=== PATIENT | female | born 1965 | race Caucasian/White ===

== ENCOUNTER 2025-01-12 08:09 | Outpatient (AMB) | payer MEDICAID, SELFPAY ==
--- NOTE | 2025-01-12 08:33 | PD.ORTHCLVIS ---
Vital signs 01/12/25 08:39 Height 1.6 m Height Method Stated Weight 89.131 kg Weight Measurement Method Standing Scale BMI 34.8 BP 124/66 Blood Pressure Source Automatic Cuff Blood Pressure Location Left Upper Arm Position Sitting Respiration 18 Pulse 50 L Pulse Source Monitor Temp 95.9 F L Temp Source Temporal Artery Scan Pulse Oximetry (%) 97 Oxygen Delivery Method Room Air Med/Allergies Allergies & Medications Allergies No Known Allergies Allergy (Verified 01/12/25 08:44) Medication Reconciliation Hydrocodone/Acetaminophen * (NORCO 5/325 *) 2 tab PO Q4H PRN PAIN #14 tabs 01/21/16 [Rx Confirmed 01/12/25] lorazepam 1 mg tablet 1 mg PO BID #5 tabs 02/10/17 [Rx Confirmed 01/12/25] sodium chloride 0.65 % nasal spray aerosol (Saline Nasal) 2 spray intranasal QID #88 mL 08/15/22 [Rx Confirmed 01/12/25] meloxicam 7.5 mg tablet 7.5 mg PO QDAY #30 tabs 02/14/24 [Rx Confirmed 01/12/25] Exam Exam Here She is not sure if she had it on the last so the x-rays show moderate arthritis quite [id number] sometimes when they do that I spoke should the right knee use we can either repeat it or we can continue with conservative treatment if he would like patient is in no acute distress and is cooperative with the examination today. Breathing is nonlabored. In no respiratory distress. Bilateral extremities were evaluated and demonstrates sensation intact to light touch. Palpable pedal pulses are present. No significant edema is present. Bilateral hips were examined. The patient has no pain with log roll of the hips. Internal rotation to 30 degrees and external rotation to 30 degrees is painless. Negative FADIR. The left knee was examined. The left knee is in varus alignment. Range of motion from 0-115 degrees. Knee is stable to varus and valgus as well as AP translation with <5mm. Patient has a negative McMurrays. There is no pain with patellofemoral compression and no crepitus noted. The knee is tender to palpation medially. The right knee was also examined. The right knee is in varus alignment. Range of motion from 0-120 degrees. Knee is stable to varus and valgus as well as AP translation with <5mm. Patient has a negative McMurrays. There is no pain with patellofemoral compression and no crepitus noted. The knee is tender to palpation medially. She has physical copies of her x-rays from [place] in September. This demonstrates moderate arthritis. I would like to repeat standing xrays. Assessment and Plan Problem List (1) Bilateral primary osteoarthritis of knee: Status: Acute Plan: Patient is a 59 yo female With bilateral knee pain and bilateral knee arthritis. She has x-rays done but were mostly nonweightbearing. I would like to get new x-rays with a Braun view. She is tried quite a lot of conservative treatment and the pain is affecting her quality life and happiness. We will get new x-rays of both knees and discuss different treatment options depending on the severity. Office Procedures GNS Level of Care Nursing/Assessment Patient Status: Initial/New Patient Nursing Assessment/Reassesment: Medication Reconciliation, Update PMH in EMR and Vital Signs Coordination of Care: Complex Care and Chronic Disease 1-5, Education Complex Pt/Fam, Consent,records obtained, informed consent, 1 Ins Authorization, Lab and Imaging orders, Results/Orders obtained and Staff clarify orders Special Needs: Language special needs New Patient Charge New Patient Point Assignment: [id number] New Patient Point Charge: SENIOR WAREHOUSE CLERK Level 4 ([id number]) MA Intake Visit Data Collection New Patient or Established: Established Patient (seen at [facility] within 3 years) Reason for Visit:: LEFT KNEE PAIN Seen by Clinical Staff ONLY (RN/MA): No Verbal consent obtained for Telemed visit?: No Infantry Officer Required: Yes PCP or OBGYN visit in last 3 months: Yes Hx Now: No Do You Feel Safe at Home: Yes Authorities Contacted: N/A Questionairres Past Medical History Past Medical History Have you ever been diagnosed with any of the following: Neurological Problems Seizures: No Cardiology Problems Congestive Heart Failure: No Edema: No Cellulitis: No Varicose Veins: No Respiratory Problems Chronic Obstructive Pulmonary Disease (COPD): No Tuberculosis: No Sleep Apnea: No Stomache/Intestinal Problems Hepatitis: No Genital/Urinary Problems Renal Disease: No Reproductive Problems Previous Pregnancies: Yes (X7) Endocrine Problems Diabetes Mellitus Type 1: No Diabetes Mellitus Type 2: No Psychologic Problems Depression: Yes (TAKES MED) Anxiety: Yes Other Problems Hospitalization: No Shingles: No Falls: No Blood Transfusions: No Anesthesia Reactions: No Chemotherapy: No Radiation Therapy: No MRSA: No Chicken Pox: No Measles: No Mumps: No Cancer: No Surgical History Pacemaker: No Subjective Visit Visit for: new patient and knee Immunization / Flu Flu Vaccine in the Last 12 Months: Yes Flu Vaccine Exclusion Criteria: Already Received History of Present Illness Chief complaint: left knee pain Pleasant 59-year-old female with worsening left knee pain over the past year. Patient reports that she has tried anti-inflammatories and 2 injections, most recently in September. Patient reports no relief from both injections and anti-inflammatories. She has had two injections in the past with minimal relief. Patient is interested in pursuing surgery. She has tried ibuprofen, meloixicam, and cortisone injections in the past. Personal History Occupation: UNEMPLOYED BMI Counceling provided: Yes Pain Pain level (0-10): 6 Pain duration: ALL DAY Pain location: anterior Pain quality: sharp, dull, aching and other (specify) (PRESSURE) Pain timing: increases with activity Associated signs & symptoms: weakness Ambulatory data Ambulatory device: none Treatments Improvement with previous injections: No Improvement with PT: No Improvement with NSAIDS: no Review of Systems Review of Systems: All systems negative unless otherwise noted in HPI.
[2025-01-12 08:39] VITALS: BP 124/66; PULSE 50; RESP 18; TEMP 35.5; O2SAT 97; BMI 34.8
--- NOTE | 2025-01-12 08:41 | XR_ITS ---
Examination: Bilateral knees 2 views Right lateral knee left lateral knee 2 views Bilateral axial knees single view TECHNIQUE: Bilateral AP knees standing single view, bilateral PA knees flexion standing single view Standing right lateral knee left lateral knee 2 views Bilateral axial knees single view total 5 views Exam date and time: January 12, 2025 0851 hours INDICATIONS: Bilateral knee pain one year. FINDINGS: Severe osteopenia Advanced narrowing medial joint space left knee Moderate osteoarthritis left patellofemoral joint No patellar dislocation Mild to moderate narrowing medial joint space right knee Moderate osteoarthritis right patellofemoral joint No patellar dislocation IMPRESSION: Osteoarthritis as above, including advanced narrowing medial joint space left knee
== END 2025-01-12 08:52 | disposition home or self-care (01) ==
PROVIDERS: PCP Physician Assistant; Referring Provider Physician Assistant; Supervising Provider Orthopaedic Surgery Adult Reconstructive Orthopaedic Surgery; Visit Provider Orthopaedic Surgery Adult Reconstructive Orthopaedic Surgery
DX: M17.0 Bilateral primary osteoarthritis of knee (principal); F41.9 Anxiety disorder, unspecified
CPT/HCPCS: 73564; 99204; G0463

== ENCOUNTER 2025-01-29 13:02 | Outpatient (AMB) | payer MEDICAID, SELFPAY ==
[2025-01-29 13:17] VITALS: BP 109/72; PULSE 68; RESP 18; TEMP 36.1; O2SAT 96; BMI 34.4
--- NOTE | 2025-01-29 13:17 | ORTHONT_ITS ---
Vital signs 01/29/25 13:17 Height 1.6 m Height Method Stated Weight 88.252 kg Weight Measurement Method Standing Scale BMI 34.4 BP 109/72 Blood Pressure Source Automatic Cuff Blood Pressure Location Right Upper Arm Position Sitting Respiration 18 Pulse 68 Pulse Source Monitor Temp 97.0 F Temp Source Temporal Artery Scan Pulse Oximetry (%) 96 Oxygen Delivery Method Room Air Med/Allergies Allergies & Medications Allergies No Known Allergies Allergy (Verified 01/29/25 13:18) Medication Reconciliation Hydrocodone/Acetaminophen * (NORCO 5/325 *) 2 tab PO Q4H PRN PAIN #14 tabs 01/21/16 [Rx Confirmed 01/29/25] lorazepam 1 mg tablet 1 mg PO BID #5 tabs 02/10/17 [Rx Confirmed 01/29/25] sodium chloride 0.65 % nasal spray aerosol (Saline Nasal) 2 spray intranasal QID #88 mL 08/15/22 [Rx Confirmed 01/29/25] meloxicam 7.5 mg tablet 7.5 mg PO QDAY #30 tabs 02/14/24 [Rx Confirmed 01/29/25] Exam Exam Here She is not sure if she had it on the last so the x-rays show moderate arthritis quite [id number] sometimes when they do that I spoke should the right knee use we can either repeat it or we can continue with conservative treatment if he would like patient is in no acute distress and is cooperative with the examination today. Breathing is nonlabored. In no respiratory distress. Bilateral extremities were evaluated and demonstrates sensation intact to light touch. Palpable pedal pulses are present. No significant edema is present. Bilateral hips were examined. The patient has no pain with log roll of the hips. Internal rotation to 30 degrees and external rotation to 30 degrees is painless. Negative FADIR. The left knee was examined. The left knee is in varus alignment. Range of motion from 0-115 degrees. Knee is stable to varus and valgus as well as AP translation with <5mm. Patient has a negative McMurrays. There is no pain with patellofemoral compression and no crepitus noted. The knee is tender to pa lpation medially. The right knee was also examined. The right knee is in varus alignment. Range of motion from 0-120 degrees. Knee is stable to varus and valgus as well as AP translation with <5mm. Patient has a negative McMurrays. There is no pain with patellofemoral compression and no crepitus noted. The knee is tender to palpation medially. Xrays demonstrate significant obliteration of the medial joint space on the left Assessment and Plan Problem List (1) Bilateral primary osteoarthritis of knee: Status: Acute Plan: Patient is a 59 yo female With bilateral knee pain and bilateral knee arthritis. I would like to get new x-rays with a Barun view. She has tried quite a lot of conservative treatment and the pain is affecting her quality life and happiness. She has significant arthritis of the left knee. She would like to try 1 more cortisone injection before pursuing surgery. Recommend knee cortisone injection as patient would like to proceed with conservative treatment at this time. The risks and benefits of the procedure were reviewed with the patient and patient gave verbal consent to continue with the procedure. Procedure: performed by Dr. Mills Using sterile technique the left knee was thoroughly prepped with alcohol, and approximately 1 cc of Kenalog 40 mg/mL and 4 cc of 1% lidocaine was injected without resistance into the medial tibial femoral joint space. The patient tolerated the procedure. Office Procedures GNS Level of Care Nursing/Assessment Patient Status: Established Patient Nursing Assessment/Reassesment: Medication Reconciliation, Update PMH in EMR and Vital Signs Coordination of Care: Complex Care and Chronic Disease 1-5, Education Complex Pt/Fam, Consent,records obtained, informed consent, Lab and Imaging orders, Results/Orders obtained and Staff clarify orders Special Needs: Language special needs Established Patient Charge Established Patient Point Assignment: 110 Established Patient Point Charge: EP Level 3 (80-115) Surgical Proc/IM SQ injection Major Surgical Procedure: Yes (KNEE INJECTION ) Medication Given Medication Given Medication Given: Yes Documented Dose Given: 4 Route: Infiitration Medication Given Medication Given Medication Given: Yes Documented Dose Given: 1 Route: Infiitration Office Meds Xylocaine 10 mg/mL (1 %) injection solution Performing Provider: Dariel Mills MD Performing Location: [facility] Administered by: Dariel Mills MD on 01/29/25 14:41 Dose Route Admin Location Dispensed Lot Number Expiration Date [facility] [employer] 20 mL Infiltration KNEE 20 mL [id number] 03/28/28 [address]-90 triamcinolone acetonide 40 mg/mL suspension for injection Performing Provider: Dariel Mills MD Performing Location: [facility] Administered by: Paty Cota on 01/29/25 14:41 Dose Route Admin Location Dispensed Lot Number Expiration Date [facility] [employer] 40 mg intra-articular KNEE 1 mL [id number] 07/28/28 0191-4830-41 TE [employer]ENTER[employer] MA Intake Visit Data Collection New Patient or Established: Established Patient (seen at [facility] within 3 years) Reason for Visit:: F/U XRAYS Seen by Clinical Staff ONLY (RN/MA): No Verbal consent obtained for Telemed visit?: No Public Records Researcher Required: No PCP or OBGYN visit in last 3 months: Yes Hx Now: No Do You Feel Safe at Home: Yes Authorities Contacted: N/A Questionairres Past Medical History Past Medical History Have you ever been diagnosed with any of the following: Neurological Problems Seizures: No Cardiology Problems Congestive Heart Failure: No Edema: No Cellulitis: No Varicose Veins: No Respiratory Problems Chronic Obstructive Pulmonary Disease (COPD): No Tuberculosis: No Sleep Apnea: No Stomache/Intestinal Problems Hepatitis: No Genital/Urinary Problems Renal Disease: No Reproductive Problems Previous Pregnancies: Yes (X7) Endocrine Problems Diabetes Mellitus Type 1: No Diabetes Mellitus Type 2: No Psychologic Problems Depression: Yes (TAKES MED) Anxiety: Yes Other Problems Hospitalization: No Shingles: No Falls: No Blood Transfusions: No Anesthesia Reactions: No Chemotherapy: No Radiation Therapy: No MRSA: No Chicken Pox: No Measles: No Mumps: No Cancer: No Surgical History Pacemaker: No Subjective Visit Visit for: follow up visit and x-rays Immunization / Flu Flu Vaccine in the Last 12 Months: No Flu Vaccine Exclusion Criteria: No Exclusion Criteria History of Present Illness Chief complaint: FOLLOW UP XRAYS Pleasant 59-year-old female with worsening left knee pain over the past year. Patient reports that she has tried anti-inflammatories and 2 injections, most recently in September. Patient reports no relief from both injections and anti- inflammatories. She has had two injections in the past with minimal relief. Patient is interested in pursuing surgery. She has tried ibuprofen, meloxicam, and cortisone injections in the past. Personal History Occupation: UNEMPLOYED BMI Counceling provided: Yes Pain Pain level (0-10): 10 Pain duration: ALL DAY Pain location: anterior Pain quality: sharp, dull and aching Pain timing: increases with activity Associated signs & symptoms: weakness and stiffness Ambulatory data Ambulatory device: none Treatments Improvement with previous injections: No Improvement with PT: No Improvement with NSAIDS: no Review of Systems Review of Systems: All systems negative unless otherwise noted in HPI.
== END 2025-01-29 13:43 | disposition home or self-care (01) ==
LOC: HODSRG 13:02
PROVIDERS: PCP Physician Assistant; Referring Provider Physician Assistant; Supervising Provider Orthopaedic Surgery Adult Reconstructive Orthopaedic Surgery; Visit Provider Orthopaedic Surgery Adult Reconstructive Orthopaedic Surgery
DX: M17.0 Bilateral primary osteoarthritis of knee (principal); M25.562 Pain in left knee; M25.561 Pain in right knee; F32.A Depression, unspecified
CPT/HCPCS: 20610; 99213; J3301; J3490; G0463

== ENCOUNTER 2025-02-04 13:57 | Outpatient (AMB) | payer MEDICAID, SELFPAY ==
[2025-02-04 14:37] VITALS: BP 104/67; PULSE 62; RESP 18; TEMP 36.4; O2SAT 98
--- NOTE | 2025-02-04 14:37 | ORTHONT_ITS ---
Vital signs 02/04/25 14:37 Height Method Stated Weight 88.507 kg Weight Measurement Method Standing Scale BP 104/67 Blood Pressure Source Automatic Cuff Blood Pressure Location Right Upper Arm Position Sitting Respiration 18 Pulse 62 Pulse Source Monitor Temp 97.6 F Temp Source Temporal Artery Scan Pulse Oximetry (%) 98 Oxygen Delivery Method Room Air Med/Allergies Allergies & Medications Allergies No Known Allergies Allergy (Verified 02/04/25 14:38) Medication Reconciliation Hydrocodone/Acetaminophen * (NORCO 5/325 *) 2 tab PO Q4H PRN PAIN #14 tabs 01/21/16 [Rx Confirmed 02/04/25] lorazepam 1 mg tablet 1 mg PO BID #5 tabs 02/10/17 [Rx Confirmed 02/04/25] sodium chloride 0.65 % nasal spray aerosol (Saline Nasal) 2 spray intranasal QID #88 mL 08/15/22 [Rx Confirmed 02/04/25] meloxicam 7.5 mg tablet 7.5 mg PO QDAY #30 tabs 02/14/24 [Rx Confirmed 02/04/25] Exam Exam Here She is not sure if she had it on the last so the x-rays show moderate arthritis quite [id number] sometimes when they do that I spoke should the right knee use we can either repeat it or we can continue with conservative treatment if he would like patient is in no acute distress and is cooperative with the examination today. Breathing is nonlabored. In no respiratory distress. Bilateral extremities were evaluated and demonstrates sensation intact to light touch. Palpable pedal pulses are present. No significant edema is present. Bilateral hips were examined. The patient has no pain with log roll of the hips. Internal rotation to 30 degrees and external rotation to 30 degrees is painless. Negative FADIR. The left knee was examined. The left knee is in varus alignment. Range of motion from 0-115 degrees. Knee is stable to varus and valgus as well as AP translation with <5mm. Patient has a negative McMurrays. There is no pain with patellofemoral compression and no crepitus noted. The knee is tender to palpation medially. The right knee was also examined. The right knee is in varus alignment. Range of motion from 0-120 degrees. Knee is stable to varus and valgus as well as AP translation with <5mm. Patient has a negative McMurrays. There is no pain with patellofemoral compression and no crepitus noted. The knee is tender to palpation medially. Xrays demonstrate significant obliteration of the medial joint space on the left with complete obliteration. Osteophytes are present Assessment and Plan Problem List (1) Bilateral primary osteoarthritis of knee: Status: Acute Plan: Patient is a 59 yo female With bilateral knee pain and bilateral knee arthritis. Xrays demonstrate severe left knee osteoarthritis. Given that she has failed conservaitve treatment including home exercises for 4 months, injections, and NSAIDS. We thus discussed tota knee replacement as a reasonable optin for the left. The nature and purpose of the total knee replacement, alternative method(s) of treatment, the material risks involved, and the possibility of complications were fully explained to the patient. The patient does NOT have any of the following contraindications to TKA: - Active infection of the knee joint, OR - Active systemic bacteremia, OR - Active skin infection or open wound at surgical site, OR - Neuropathic arthritis, OR - Severe, rapidly progressive neurological disease, OR - Severe medical condition that makes risks of surgery outweigh the potential benefit The patient was told the most common risks and complications associated with a total knee replacement include, but are not limited to: blood clots in the leg, fatal pulmonary embolism, dislocation of the prosthesis, intraoperative and postoperative fractures of the femur or tibia, infection, failure of the prosthesis or grafting materials, complications from anesthesia, reactions to blood transfusions, postoperative leg length inequality, instability of the knee replacement, nerve damage or injury, vascular injury, delayed wound healing, infection, other injury or even . In addition, there are risks associated with anesthesia given during this operation. Also, the patient was told that after undergoing a total knee replacement there may still be persistent pain or disability. The patient was informed that the success of this operation in part depends upon the mechanical devices which are going to be implanted and that these devices can fail or malfunction, and may need to be repaired or replaced and there are no guarantees as to the longevity of this device or its parts and that it or its parts could fail prematurely. The patient was also notified that during the course of surgery, there may be a need to use bone graft from donors, and that any bone graft used will be carefully screened for communicable diseases, including AIDS, hepatitis, Tomasz-Creutzfeldt, or other diseases, but despite the screening procedures, there is a small chance that they could contract one of these diseases. Finally, the patient was asked to follow completely and fully with all advice and recommended treatments, and that recovery and ultimate outcome are affected by their compliance with recommended treatment. We discussed the risks, benefits and treatment alternatives, and the patient is interested in proceeding with surgery. We will try to set this up as expeditiously as possible. Office Procedures GNS Level of Care Nursing/Assessment Patient Status: Established Patient Nursing Assessment/Reassesment: Medication Reconciliation, Update PMH in EMR and Vital Signs Coordination of Care: Complex Care and Chronic Disease 1-5, Education Complex Pt/Fam, Consent,records obtained, informed consent, 2-3 Insurance Autorizations needed, Lab and Imaging orders, Results/Orders obtained and Staff clarify orders Special Needs: Language special needs Established Patient Charge Established Patient Point Assignment: 130 Established Patient Point Charge: EP Level 4 (120-155) MA Intake Visit Data Collection New Patient or Established: Established Patient (seen at [facility] within 3 years) Reason for Visit:: F/U KNEE INJECTION Seen by Clinical Staff ONLY (RN/MA): No Verbal consent obtained for Telemed visit?: No Tank Truck Operator Required: Yes PCP or OBGYN visit in last 3 months: Yes Hx Now: No Do You Feel Safe at Home: Yes Authorities Contacted: N/A Questionairres Past Medical History Past Medical History Have you ever been diagnosed with any of the following: Neurological Problems Seizures: No Cardiology Problems Congestive Heart Failure: No Edema: No Cellulitis: No Varicose Veins: No Respiratory Problems Chronic Obstructive Pulmonary Disease (COPD): No Tuberculosis: No Sleep Apnea: No Stomache/Intestinal Problems Hepatitis: No Genital/Urinary Problems Renal Disease: No Reproductive Problems Previous Pregnancies: Yes (X7) Endocrine Problems Diabetes Mellitus Type 1: No Diabetes Mellitus Type 2: No Psychologic Problems Depression: Yes (TAKES MED) Anxiety: Yes Other Problems Hospitalization: No Shingles: No Falls: No Blood Transfusions: No Anesthesia Reactions: No Chemotherapy: No Radiation Therapy: No MRSA: No Chicken Pox: No Measles: No Mumps: No Cancer: No Surgical History Pacemaker: No Subjective Visit Visit for: follow up visit and x-rays Immunization / Flu Flu Vaccine in the Last 12 Months: No Flu Vaccine Exclusion Criteria: No Exclusion Criteria History of Present Illness Chief complaint: FOLLOW UP XRAYS Pleasant 59-year-old female with worsening left knee pain over the past year. Patient reports that she has tried anti-inflammatories and 3 injections. The knee injections are not working for more than a week. She has also tried ibuprofen, meloxicam, and cortisone injections in the past. The pain is affecting her quality of life and happiness. Personal History Occupation: UNEMPLOYED BMI Counceling provided: Yes Pain Pain level (0-10): 10 Pain duration: ALL DAY Pain location: anterior Pain quality: sharp, dull and aching Pain timing: increases with activity Associated signs & symptoms: weakness and stiffness Ambulatory data Ambulatory device: none Treatments Improvement with previous injections: No Improvement with PT: No Improvement with NSAIDS: no Review of Systems Review of Systems: All systems negative unless otherwise noted in HPI.
== END 2025-02-04 14:51 | disposition home or self-care (01) ==
LOC: HODSRG 13:57
PROVIDERS: PCP Physician Assistant; Referring Provider Physician Assistant; Supervising Provider Orthopaedic Surgery Adult Reconstructive Orthopaedic Surgery; Visit Provider Orthopaedic Surgery Adult Reconstructive Orthopaedic Surgery
DX: M17.0 Bilateral primary osteoarthritis of knee (principal); M25.562 Pain in left knee; M25.561 Pain in right knee; F32.A Depression, unspecified
CPT/HCPCS: 99214; G0463

== ENCOUNTER 2025-03-11 07:55 | Emergency (ER) | payer MEDICAID, SELFPAY ==
[2025-03-11 07:56] VITALS: BMI 41.5
[2025-03-11 08:04] VITALS: BP 116/75; PULSE 65; RESP 18; TEMP 36.7; O2SAT 98
--- NOTE | 2025-03-11 08:12 | XR_ITS ---
Examination: Thoracic spine 3 views Technique one AP lateral coned lateral upper dorsal spine 3 views Date and time: March 11, 2025 at 0830 hours INDICATIONS: Upper back pain one week. FINDINGS: Prominent osteopenia No acute thoracic fracture Moderate diffuse thoracic degenerative disc disease IMPRESSION: Moderate diffuse thoracic degenerative disc disease
--- NOTE | 2025-03-11 08:13 | EDNOTE_ITS ---
<Statement entered by Lesa Quintana MD - 03/11/25 10:57> As co-signing physician, I was present and available for consult prn. I concur with the plan and care as documented by the midlevel provider. ED Back Injury Pain RME/HPI General Chief Complaint: Back Pain/Injury Stated Complaint: UPPER BACK PAIN SINCE 03/04 NO INJURY Time Seen by Provider: 03/11/25 07:57 Source: patient Arrival date/time: 03/11/25 07:55 59-year-old female with no known medical history presents to the emergency room with a chief complaint of thoracic back pain x 1 week. Patient denies any trauma. Mode of arrival: ambulatory Limitations: no limitations Related Data Previous Rx's ?Medication ?Instructions ?Recorded Hydrocodone/Acetaminophen * (NORCO 2 tab PO Q4H PRN PA IN #14 tabs 01/21/16 5/325 *) lorazepam 1 mg tablet 1 mg PO BID #5 tabs 02/10/17 sodium chloride 0.65 % nasal spray 2 spray intranasal QID #88 mL 08/15/22 aerosol (Saline Nasal) meloxicam 7.5 mg tablet 7.5 mg PO QDAY #30 tabs 01/26 07/21 Allergies Allergy/AdvReac Type Severity Reaction Status Date / Time No Known Allergies Allergy Verified 03/11/25 07:58 Review of Systems Review of Systems Systems Reviewed: All systems reviewed, normal except as documented Constitutional Constitutional: Reports system reviewed and no additional complaints, except as documented, Denies fatigue, Denies fever(s), Denies headache(s) and Denies weakness Eyes Eyes: Reports system reviewed and no additional complaints, except as documented, Denies blurry vision and Denies change in vision ENT Ears, Nose, Mouth, and Throat: Reports system reviewed and no additional complaints, except as documented, Denies otalgia, Denies headache(s), Denies nasal congestion, Denies throat swelling and Denies vertigo Cardiovascular Cardiovascular: Reports system reviewed and no additional complaints, except as documented, Denies chest pain, Denies dyspnea and Denies dyspnea on exertion Respiratory Respiratory: Reports system reviewed and no additional complaints, except as documented, Denies chest congestion, Denies cough, Denies dyspnea, Denies dyspnea on exertion and Denies wheezing Gastrointestinal Gastrointestinal: Reports system reviewed and no additional complaints, except as documented, Denies abdominal pain, Denies cramping, Denies nausea and Denies vomiting Genitourinary Genitourinary: Reports system reviewed and no additional complaints, except as documented Musculoskeletal Musculoskeletal: Reports system reviewed and no additional complaints, except as documented, Reports arthralgias and Reports back pain Integumentary/Breasts Skin/Breast: Reports system reviewed and no additional complaints, except as documented and Denies wounds Neurologic Neurologic: Reports system reviewed and no additional complaints, except as documented, Denies confusion, Denies headache(s), Denies lack of coordination, Denies vertigo and Denies weakness Psychiatric Psychiatric: Reports system reviewed and no additional complaints, except as documented, Denies anxiety, Denies confusion, Denies depression, Denies paranoia, Denies suicidal ideation and Denies tactile hallucinations Endocrine Endocrine: Reports system reviewed and no additional complaints, except as documented and Denies fatigue Hematologic/Lymphatic Hematologic/Lymphatic: Reports system reviewed and no additional complaints, except as documented and Denies lymphadenopathy Allergic/Immunologic Allergic/Immunologic: Reports system reviewed and no additional complaints, except as documented, Denies throat swelling, Denies urticaria and Denies wheezing Past Medical History Past Medical History NEUROLOGIC: Negative Neurological Disorders or Seizures CARDIAC: Negative Cardiac Disorders, Congestive Heart Failure, Edema, Cellulitis or Varicose Veins RESPIRATORY: Negative Chronic Obstructive Pulmonary Disease (COPD), Tuberculosis or Sleep Apnea GASTROINTESTINAL: Negative Gastrointestinal Disorders or Hepatitis GENITOURINARY: Negative Genitourinary Disorders or Renal Disease REPRODUCTIVE: Positive Previous Pregnancies (X7) MUSCULOSKELETAL: Positive Musculoskeletal Disorders ENDOCRINE: Negative Endocrine Disorders, Diabetes Mellitus Type 1 or Diabetes Mellitus Type 2 HEMATOLOGIC: Negative Blood Disorders PSYCHO/SOCIAL: Positive Depression (TAKES MED) and Anxiety OTHER HISTORY: Negative Hospitalization, Autoimmune Disease, Shingles, Falls, Blood Transfusions, Anesthesia Reactions, Chemotherapy, Radiation Therapy, MRSA, Chicken Pox, Measles, Mumps or Cancer Family History FAMILY HISTORY: Positive Family Cancer (BROTHER (LIVER)); Negative Family Psychiatric Problems, Family Respiratory Disorders, Family Cardiac Disorders, Family Gastrointestinal Problems, Family Surgery or Family Anesthesia Reaction Surgical History SURGICAL: Positive Section (X2); Negative Pacemaker Social History SMOKING STATUS: Never smoker ED Exam General Limitations: Present no limitations General appearance: Present alert and in no apparent distress Head Head exam: Present atraumatic Eye Eye exam: Present normal appearance, PERRL and EOMI ENT ENT exam: Present normal exam, normal oropharynx and mucous membranes moist Neck Neck exam: Present normal inspection, full ROM and trachea midline Chest Chest inspection: Present normal inspection and symmetric chest wall rise Respiratory Respiratory exam: Present normal lung sounds bilaterally Cardiovascular Cardiovascular exam: Present regular rate, normal rhythm and normal heart sounds Abdominal Exam Abdominal exam: Present soft and normal bowel sounds Extremities Exam Extremities exam: Present normal inspection and full ROM Back Exam Back exam: Present normal inspection, full ROM and tenderness Back 1 view image: 2 1. Thoracic back pain. Neurological Exam Neurological exam: Present alert, oriented X3 and CN II-XII intact Psychiatric Psychiatric exam: Present normal affect and normal mood Skin Skin exam: Present warm, dry, intact and normal color Course Quality Measures none Orders Category Date Time Status XR thoracic spine 3V Stat Exams 03/11/25 08:12 Completed Ketorolac Inj [Toradol Inj] Med 03/11/25 08:12 Discontinued 30 mg IM X1 ONE Vital Signs Vital signs: Vital Signs Temperature 98.1 F 03/11/25 08:04 Pulse Rate 65 03/11/25 08:04 Respiratory Rate 18 03/11/25 08:04 Blood Pressure 116/75 03/11/25 08:04 Pulse Oximetry (%) 98 03/11/25 08:04 Oxygen Delivery Method Room Air 03/11/25 08:04 Back Pain / Injury MDM Narrative MDM Narrative:: 59-year-old female with no known medical history presents to the emergency room with a chief complaint of thoracic back pain x 1 week. Patient denies any trauma. Patient is hemodynamically stable and in no apparent distress Patient denies any trauma and states his thoracic back pain began 1 week ago. Patient states that when she is rolling in bed her pain gets worse. Patient states she made an appointment with her primary care provider who scheduled her in late March. X-ray of the thoracic spine was completed and was negative for any acute fracture or dislocation and showed degenerative disc disease. Patient was discharged and educated to follow-up with primary care provider in the next 24 to 48 hours and return to the emergency room for any evidence of worsening signs or symptoms Patient data External records reviewed:: [facility] previous records Clinical information provided by:: patient Social determinants that could affect healthcare access:: none Patient has the following chronic illnesses:: No chronic illness How is presenting disease/condition affected by chronic disease/condition?: no chronic disease Evaluation data The following diagnostics were reviewed and interpreted by me:: lab results and radiology exam(s) Lab and/or radiology exams considered but not ordered:: Labs and radiology exams considered and ordered Interpretation Summary: Thoracic back [id number]: Prominent osteopenia No acute thoracic fracture Moderate diffuse thoracic degenerative disc disease IMPRESSION: Moderate diffuse thoracic degenerative disc disease Medications / Prescriptions Medications or Prescriptions considered but not ordered:: Medication given Medication administrations:: Medication Administration History Discontinued Medications Ketorolac Tromethamine (Ketorolac Inj 60 Mg/2 Ml Vial) 30 mg IM X1 ONE Stop: 03/11/25 08:13 Last Admin: 03/11/25 08:47 Dose: 30 mg Documented By: Medication given Consultations Consultation(s) initiated? (list below): No Diagnosis Differential diagnosis back pain/injury: lumbar radiculopathy, sciatica, strain of lumbar region, thoracic back pain, discitis and other (Degenerative disc disease) Most likely diagnosis given after review of the tests above:: Degenerative disc disease Admission Indicated Admission indicated?: not indicated Admission Request Was there a request for admission?: No Disposition Plan Disposition Plan: Discharge Discharge Attestation Discharge Attestation: The patient and all family members were given an opportunity to ask questions and understood the discharge instructions. Discharge instructions specifically effects, indications for sooner follow up or return to the emergency department, and the expected course of current diagnosis. Patient condition: Stable Discharge Plan Plan Patient Disposition: HOME (Self Care) Discharge Disposition comment: Stable Prescriptions/Referrals Prescriptions/Med Rec: No Action Hydrocodone/Acetaminophen * (NORCO 5/325 *) 1 TAB tablet 2 tab PO Q4H PRN (Reason: PAIN) Qty: 14 0RF lorazepam 1 MG tablet 1 mg PO BID Qty: 5 0RF Saline Nasal 0.65 % aerosol,spray 2 spray intranasal QID Qty: 88 0RF meloxicam 7.5 mg tablet 7.5 mg PO QDAY Qty: 30 0RF Referrals: Keron Rojas PA-C [Primary Care Provider] - In 1 week Problem List Clinical Impression: Degenerative disc disease Patient/Caregiver Discharge Instructions Additional Instructions: Por favor, consulte con martínez m?dico de cabecera en las pr?ximas 24 a 48 horas. Se realizaron radiograf?as que dieron negativo para cualquier fractura o luxaci?n aguda y mostraron enfermedad degenerativa del disco. [place] es el deterioro del cart?bryson entre las v?rtebras. Por favor, consulte con martínez m?dico de cabecera para recibir tratamiento adicional. Si observa cualquier signo de empeoramiento de los signos o s?ntomas, acuda a urgencias de inmediato. Print Language: Somali Stand Alone Forms: [employer] Award Info., Patient Portal Info Letter PA/ASSEMBLER FINGER BUFFS Supervising Physician PA/ASSEMBLER FINGER BUFFS Supervising Physician: Dr. QUINTANA
[2025-03-11] MEDS: KETOROLAC INJ 60 MG/2 ML VIAL 30 MG IM (08:47)
== END 2025-03-11 09:48 | disposition home or self-care (01) ==
PROVIDERS: Emergency Provider Emergency Medicine; PCP Physician Assistant
DX: M51.34 Other intervertebral disc degeneration, thoracic region (principal)
CPT/HCPCS: 72072; 96372; 99283; J1885

== ENCOUNTER 2025-05-04 10:19 | Outpatient (AMB) | payer MEDICAID, SELFPAY ==
[2025-05-04 10:53] VITALS: BP 94/57; PULSE 56; RESP 19; TEMP 36.7; O2SAT 96; BMI 36.5
--- NOTE | 2025-05-04 10:53 | PD.ORTHCLVIS ---
Vital signs 05/04/25 10:53 Height 1.55 m Height Method Stated Weight 87.685 kg Weight Measurement Method Standing Scale BMI 36.5 BP 94/57 L Blood Pressure Source Automatic Cuff Blood Pressure Location Right Upper Arm Position Sitting Respiration 19 Pulse 56 L Pulse Source Monitor Temp 98.0 F Temp Source Temporal Artery Scan Pulse Oximetry (%) 96 Oxygen Delivery Method Room Air Med/Allergies Allergies & Medications Allergies No Known Allergies Allergy (Verified 05/04/25 10:53) Medication Reconciliation Hydrocodone/Acetaminophen * (NORCO 5/325 *) 2 tab PO Q4H PRN PAIN #14 tabs 01/21/16 [Rx Confirmed 05/04/25] lorazepam 1 mg tablet 1 mg PO BID #5 tabs 02/10/17 [Rx Confirmed 05/04/25] sodium chloride 0.65 % nasal spray aerosol (Saline Nasal) 2 spray intranasal QID #88 mL 08/15/22 [Rx Confirmed 05/04/25] meloxicam 7.5 mg tablet 7.5 mg PO QDAY #30 tabs 02/14/24 [Rx Confirmed 05/04/25] Exam Exam Here She is not sure if she had it on the last so the x-rays show moderate arthritis quite [id number] sometimes when they do that I spoke should the right knee use we can either repeat it or we can continue with conservative treatment if he would like patient is in no acute distress and is cooperative with the examination today. Breathing is nonlabored. In no respiratory distress. Bilateral extremities were evaluated and demonstrates sensation intact to light touch. Palpable pedal pulses are present. No significant edema is present. Bilateral hips were examined. The patient has no pain with log roll of the hips. Internal rotation to 30 degrees and external rotation to 30 degrees is painless. Negative FADIR. The left knee was examined. The left knee is in varus alignment. Range of motion from 0-115 degrees. Knee is stable to varus and valgus as well as AP translation with <5mm. Patient has a negative McMurrays. There is no pain with patellofemoral compression and no crepitus noted. The knee is tender to palpation medially. The right knee was also examined. The right knee is in varus alignment. Range of motion from 0-120 degrees. Knee is stable to varus and valgus as well as AP translation with <5mm. Patient has a negative McMurrays. There is no pain with patellofemoral compression and no crepitus noted. The knee is tender to palpation medially. Xrays demonstrate significant obliteration of the medial joint space on the left with complete obliteration. Osteophytes are present Assessment and Plan Problem List (1) Bilateral primary osteoarthritis of knee: Status: Acute Plan: Patient is a 59 yo female With bilateral knee pain and bilateral knee arthritis. Xrays demonstrate severe left knee osteoarthritis. Given that she has failed conservaitve treatment including home exercises for 4 months, injections, and NSAIDS. We thus discussed tota knee replacement as a reasonable option for the left. The nature and purpose of the total knee replacement, alternative method(s) of treatment, the material risks involved, and the possibility of complications were fully explained to the patient. The patient does NOT have any of the following contraindications to TKA: - Active infection of the knee joint, OR - Active systemic bacteremia, OR - Active skin infection or open wound at surgical site, OR - Neuropathic arthritis, OR - Severe, rapidly progressive neurological disease, OR - Severe medical condition that makes risks of surgery outweigh the potential benefit The patient was told the most common risks and complications associated with a total knee replacement include, but are not limited to: blood clots in the leg, fatal pulmonary embolism, dislocation of the prosthesis, intraoperative and postoperative fractures of the femur or tibia, infection, failure of the prosthesis or grafting materials, complications from anesthesia, reactions to blood transfusions, postoperative leg length inequality, instability of the knee replacement, nerve damage or injury, vascular injury, delayed wound healing, infection, other injury or even . In addition, there are risks associated with anesthesia given during this operation. Also, the patient was told that after undergoing a total knee replacement there may still be persistent pain or disability. The patient was informed that the success of this operation in part depends upon the mechanical devices which are going to be implanted and that these devices can fail or malfunction, and may need to be repaired or replaced and there are no guarantees as to the longevity of this device or its parts and that it or its parts could fail prematurely. The patient was also notified that during the course of surgery, there may be a need to use bone graft from donors, and that any bone graft used will be carefully screened for communicable diseases, including AIDS, hepatitis, Tomasz-Creutzfeldt, or other diseases, but despite the screening procedures, there is a small chance that they could contract one of these diseases. Finally, the patient was asked to follow completely and fully with all advice and recommended treatments, and that recovery and ultimate outcome are affected by their compliance with recommended treatment. We discussed the risks, benefits and treatment alternatives, and the patient is interested in proceeding with surgery. We will try to set this up as expeditiously as possible. Office Procedures GNS Level of Care Nursing/Assessment Patient Status: Established Patient Nursing Assessment/Reassesment: Medication Reconciliation, Update PMH in EMR and Vital Signs Coordination of Care: Complex Care and Chronic Disease 1-5, Education Complex Pt/Fam, Consent,records obtained, informed consent, Lab and Imaging orders, Results/Orders obtained and Staff clarify orders Special Needs: Language special needs Established Patient Charge Established Patient Point Assignment: 110 Established Patient Point Charge: EP Level 3 (80-115) MA Intake Visit Data Collection New Patient or Established: Established Patient (seen at [facility] within 3 years) Reason for Visit:: PRE-OP LEFT TKA Seen by Clinical Staff ONLY (RN/MA): No Verbal consent obtained for Telemed visit?: No Medical Assistant Required: Yes PCP or OBGYN visit in last 3 months: Yes Hx Now: No Do You Feel Safe at Home: Yes Authorities Contacted: N/A Questionairres Past Medical History Past Medical History Have you ever been diagnosed with any of the following: Neurological Problems Seizures: No Cardiology Problems Congestive Heart Failure: No Edema: No Cellulitis: No Varicose Veins: No Respiratory Problems Chronic Obstructive Pulmonary Disease (COPD): No Tuberculosis: No Sleep Apnea: No Stomache/Intestinal Problems Hepatitis: No Genital/Urinary Problems Renal Disease: No Reproductive Problems Previous Pregnancies: Yes (X7) Endocrine Problems Diabetes Mellitus Type 1: No Diabetes Mellitus Type 2: No Psychologic Problems Depression: Yes (TAKES MED) Anxiety: Yes Other Problems Hospitalization: No Shingles: No Falls: No Blood Transfusions: No Anesthesia Reactions: No Chemotherapy: No Radiation Therapy: No MRSA: No Chicken Pox: No Measles: No Mumps: No Cancer: No Surgical History Pacemaker: No Subjective Visit Visit for: knee Immunization / Flu Flu Vaccine in the Last 12 Months: No Flu Vaccine Exclusion Criteria: No Exclusion Criteria History of Present Illness Chief complaint: PRE-OP L TKA Pleasant 59-year-old female with worsening left knee pain over the past year. Patient reports that she has tried anti-inflammatories and 3 injections. The knee injections are not working for more than a week. She has also tried ibuprofen, meloxicam, and cortisone injections in the past. The pain is affecting her quality of life and happiness. Personal History Occupation: UNEMPLOYED Red flag PMH: BMI BMI Counceling provided: Yes Pain Pain level (0-10): 9 Pain duration: ALL DAY Pain location: inside (medial), outside (lateral), anterior and posterior Pain quality: sharp, dull and aching Pain timing: night, increases with activity and stairs Associated signs & symptoms: numbness, weakness and stiffness Ambulatory data Ambulatory device: none Treatments Number of previous injections: 2 Improvement with previous injections: No Improvement with PT: No Improvement with NSAIDS: no Review of Systems Review of Systems: All systems negative unless otherwise noted in HPI.
== END 2025-05-04 11:07 | disposition home or self-care (01) ==
PROVIDERS: PCP Physician Assistant; Referring Provider Physician Assistant; Supervising Provider Orthopaedic Surgery Adult Reconstructive Orthopaedic Surgery; Visit Provider Orthopaedic Surgery Adult Reconstructive Orthopaedic Surgery
DX: M17.0 Bilateral primary osteoarthritis of knee (principal); M25.562 Pain in left knee; M25.561 Pain in right knee
CPT/HCPCS: 99213; G0463

== ENCOUNTER → 2025-05-10 | Outpatient (CLI) | payer MEDICAID, SELFPAY ==
--- NOTE | 2025-05-10 12:00 | XR_ITS ---
Examination: CT left lower extremity, without contrast. 2-D sagittal reconstructions. 2-D coronal reconstructions. 3-D reconstructions. Date and time of exam:May 10, 2000 2512 0 8:00 PM INDICATIONS: Diagnosis left knee unilateral primary osteoarthritis, left knee pain one year CTDI: vol (mGy):18.4 DLP: (mGycm):916 Technique: Multiple 1.25 mm axial sections of the left lower extremity without intravenous contrast have been obtained. 2-D sagittal and coronal reconstructions have been obtained. 3-D reconstructions have been obtained. Low dose protocols were performed. One or more of the following dose reduction techniques were used; automated exposure control, adjustment of the mA and/or KV according to patient size, use of iterative reconstruction technique. Findings: Moderate osteopenia Moderate narrowing left hip joint No left hip fracture or dislocation Advanced left knee tricompartment osteoarthritis including significant narrowing medial joint space No fracture. No patellar dislocation IMPRESSION: Advanced left knee tricompartment osteoarthritis
== END | disposition home or self-care (01) ==
LOC: CCTX 11:39
PROVIDERS: PCP Physician Assistant; Referring Provider Orthopaedic Surgery Adult Reconstructive Orthopaedic Surgery; Visit Provider Orthopaedic Surgery Adult Reconstructive Orthopaedic Surgery
DX: M17.12 Unilateral primary osteoarthritis, left knee (principal)
CPT/HCPCS: 73700

== ENCOUNTER 2025-05-24 05:40 | Day surgery (SDC) | payer MEDICAID, SELFPAY ==
--- NOTE | 2025-05-20 06:00 | EKG_ITS ---
[facility] Test Date: 2025-05-20 Pat Name: LINDA KAM Department: Room: - Gender: Female [employer] Chemist: MARLYS : 1965 Requested By: Xu Lyons Order Number: [id number] Reading MD: Xu Lyons Measurements Intervals [place] Rate: 47 P: 51 SC: 195 QRS: 13 QRSD: 101 T: 51 QT: 427 QTc: 378 Interpretive Statements SINUS BRADYCARDIA LOW QRS VOLTAGE IN PRECORDIAL LEADS [QRS DEFLECTION < 1.0 mV IN CHEST LEADS] NONSPECIFIC ST ELEVATION [0.05+ mV ST ELEVATION] Compared to ECG 08/15/2022 19:18:33 Low QRS voltage now present ST (T wave) deviation now present Sinus rhythm no longer present /store/S0/[id number].pdf
[2025-05-20 08:46] VITALS: BMI 36.7
[2025-05-20 10:16] LABS: Basophils # (Auto) 0.0 Thou/mm3 (0.0-0.2); Basophils % (Auto) 1 % (0-2.5); Eosinophils # (Auto) 0.1 Thou/mm3 (0.0-0.5); Eosinophils % (Auto) 3 % (0-10); Hematocrit 38.1 % (36.0-46.0); Hemoglobin 12.9 g/dL (12.0-16.0); Immature Granulocytes Auto 0.01 Thou/mm3 (0.00-0.00); Lymphocytes # (Auto) 1.7 Thou/mm3 (1.0-4.8); Lymphocytes % (Auto) 34 % (10-50); Mean Corpuscular HGB Conc 33.9 g/dl (31.0-37.0); Mean Corpuscular Hemoglobin 31.8 pg (25.0-35.0); Mean Corpuscular Volume 94 fL (80-100); Monocytes # (Auto) 0.4 Thou/mm3 (0.0-0.8); Monocytes % (Auto) 8 % (0-12); Neutrophils # (Auto) 2.7 Thou/mm3 (1.8-7.7); Neutrophils % (Auto) 54 % (37-80); Nucleated Red Blood Cell # 0.00 Thou/mm3 (0.00-0.00); Nucleated Red Blood Cell % 0 /100 WBC (0); Platelet Count 276 Thou/mm3 (140-440); RDW Standard Deviation 41.6 fL (36.4-46.3); Red Blood Count 4.06 Miln/mm3 (4.00-5.20); White Blood Count 4.9 Thou/mm3 (3.6-11.0)
[2025-05-20 10:24] LABS: INR 1.0 (0.9-1.3); Partial Thromboplastin Time 26.7 Seconds (22.0-36.0); Prothrombin Time 10.4 Seconds (9.0-12.2)
[2025-05-20 10:37] LABS: Alanine Aminotransferase 12 U/L (10-49); Albumin, Serum 4.4 gm/dL (3.4-4.8); Albumin/Globulin Ratio 1.6 (1.2-2.2); Alkaline Phosphatase 128 U/L (46-116); Anion Gap 8 (7-16); Aspartate Amino Transferase 23 U/L (0-34); BUN/Creatinine Ratio 19 Ratio (12-20); Bilirubin,Total 0.7 mg/dL (0.3-1.2); Blood Urea Nitrogen 13 mg/dL (9-23); Calcium 9.4 mg/dL (8.3-10.6); Calcium (Corrected) 9.4 mg/dL (8.5-10.1); Carbon Dioxide 26.8 mMol/L (20.0-31.0); Chloride 103 mMol/L (98-107); Creatinine (Component) 0.7 mg/dL (0.6-1.3); Estimated Creatinine Clearance 85.2 mL/min (>60); Globulin 2.8 gm/dL (2.3-3.5); Glucose 101 mg/dL (74-106); Osmolality,Calculated 275 (275-295); Potassium 4.5 mMol/L (3.4-5.1); Sodium 138 mMol/L (136-145); Total Protein 7.2 gm/dL (5.7-8.2); eGFR > 60 See Note
[2025-05-24] VITALS (16 sets, daily range): BP systolic 126–169; BP diastolic 59–97; PULSE 55–86; RESP 14–68; TEMP 36.2–36.8; O2SAT 94–100; BMI 36.9
[2025-05-24] MEDS: PREGABALIN 75 MG CAPSULE PO (06:19)
[2025-05-24] MEDS: MELOXICAM 7.5 MG TABLET PO (06:20)
[2025-05-24] MEDS: ACETAMINOPHEN 325 MG TABLET 650 MG PO (06:20)
--- NOTE | 2025-05-24 09:33 | ESOP_ITS ---
Date of Procedure 05/24/25 Pre Op Diagnosis left knee osteoarthritis Post Op Diagnosis left knee osteoarthritis Procedure left total knee replacement suzan Findings full thickness cartilage loss and osteophytes Procedure Description Indication: The patient is a 59 year old who has a long history of left knee pain. X-rays show degenerative arthritis involving the knee. Over the past several years the patient has had increasing pain, progressive limitation in function. He has failed conservative measures including activity modification, physical therapy, injections, anti-inflammatories, and assistive devices. After a lengthy discussion of the risks and benefits, the patient presents now for total knee replacement. The nature and purpose of the total knee replacement, alternative method(s) of treatment, the material risks involved, and the possibility of complications were fully explained to the patient. The patient was told the most common risks and complications associated with a total knee replacement include, but are not limited to blood clots in the leg, fatal pulmonary embolism, dislocation of the prosthesis, intraoperative and postoperative fractures of the femur or tibia, infection, failure of the prosthesis or grafting materials, complications from anesthesia, reactions to blood transfusions, postoperative leg length inequality, instability of the knee replacement, nerve damage or injury, vascular injury, delayed wound healing, infections, other injury or even . In addition, there are risks associated with anesthesia given during this operation, temporary or permanent numbness on the skin lateral to the incision can be a complication unique to total knee surgery, and kneeling can be painful after knee replacement surgery. Also, the patient was told that after undergoing a total knee replacement there may still be pain or disability. We discussed with the patient that we will be using a robot-assisted technology. We discussed that there is a possibility of converting to manual instrumentation. The patient was informed that the success of this operation in part depends upon the mechanical devices which are going to be implanted and that these devices can fail or malfunction, and may need to be repaired or replaced and there are no guarantees as to the longevity of this device or its part and that it or its parts could fail prematurely. Finally, the patient was asked to follow completely and fully with all advice and recommended treatments, and that recovery and ultimate outcome are affected by their compliance with recommended treatment. Surgical technique: Patient was marked and consented in the pre-operative area. The patient was brought to the operating room and placed on the operating table in a supine position. Prior to positioning, a timeout procedure was performed between the surgeon, the anesthesiologist, and the nursing staff where the patient and the operative side were identified and confirmed. After adequate general anesthetic was obtained, the left lower extremity was prepped and draped in the usual sterile fashion. A weight based dose of Cefazolin were administered within 1 hour prior to incision. The robot was preregistered and calirated before the incision. The extremity was exsanguinated with an esmarch badge and tourniquet inflated to 250mmHg. A midline incision was made. A median parapatellar arthrotomy was made. The patella was subluxed laterally. A medial release was performed to expose the medial tibia. His femoral and tibial pins were placed through an intra incisional manner for both cases. Every effort was made to ensure that the distalmost aspect of the pin was hung in the second cortex. The arrays were then tightened several times to ensure that it was fixed for the remainder of the case. Both femoral and tibial checkpoints were then placed. We then went through the registration process of the bone. We then assessed the knee deformity and attempted to correct it. We also used the robot to aid in judging laxity in both extension and flexion. Final based on laxity and alignment we changed the preoperative assessment to obtain proper proper implant positioning and to correct deformity. Attention was then placed to the tibia. We made a tibial cut using the robot ensuring that both the MCL and the patella tendon were protected with retractors. We then went to the femur and made the posterior cut followed by the anterior cut and the anterior chamfer. The bone was then removed and we made a distal femur cut and a posterior chamfer cut. We verified all cuts. A trial reduction was performed with a size 5 femoral component and a size 4 keeled tibial component. The patella tracked centrally, and no lateral retinacular release was necessary. The trial implants were removed. The arrays, pins, and checkpoints were all removed. We performed a verification that all pins were removed. The cut bone surfaces were lavaged. A size 5 left femoral component, a size 4 keeled tibial component , were impacted into position. The knee was felt to be well balanced in the sagittal and coronal plane. The final 4x12mm cruciate- substituting articular insert was impacted into the tibial tray. The knee was brought out to full extension, flexed up to 120 degrees. It was stable to varus and valgus stress and appropriately balanced in flexion and extension. The wounds were copiously irrigated following deflation of tourniquet. The medial retinaculum was reapproximated with #1 vicryl and quill. The subcutaneous tissues were closed with 0 and 2-0 interrupted Vicryl. The skin was closed with 3-0 Monofilament V loc suture. A sterile dressing was applied. The patient was transferred to a bed and brought to recovery in stable condition. The patient tolerated the procedure well. There were no intraoperative complications. Sponge and needle counts were correct times 2. As the attending surgeon, Kristy moya I was present and performed the entire operation. Grafts/Implants Size 5 CR Femur Size 4 Tibia 12mm poly CS Anesthesia spinal Implants jamal Pathology / specimen None Pathology comment: none Estimated Blood Loss 150 Condition Stable Disposition same day Surgeon Dariel Mills MD Surgical Staff Operation Date: 05/24/25 07:30 Case Staff Anesthesiologist: Shine Alejandre RN First Assistant: Bonnie Norton
--- NOTE | 2025-05-24 09:37 | SUR.PHASEI ---
0937: Pt. AAOx4, vitals stable, breathing unlabored, no complaint of pain or nausea, dressing to left knee CDI, no active bleed noted, bilateral dorsalis pedis pulses faint and regular, cap refill to bilateral feet less than 3 seconds, pt. able to move bilateral legs, report received from Megan SORIANO and MD Alejandre.
[2025-05-24] MEDS: ONDANSETRON INJ 2 MG/ML INJ 2 ML 4 MG IV (09:49)
--- NOTE | 2025-05-24 09:53 | XR_ITS ---
Examination: Knee, left , 3 views Technique: Knee AP, lateral, oblique 3 views Date and time of exam: May 16, 2025 1046 hours INDICATIONS: Postop knee replacement. FINDINGS: Total left knee arthroplasty. Satisfactory alignment. Severe osteopenia. No fracture IMPRESSION: Total left knee arthroplasty with satisfactory alignment
[2025-05-24] MEDS: METOCLOPRAMIDE INJ 5 MG/ML VIAL 2 ML 10 MG IVP (09:57)
[2025-05-24] MEDS: PROMETHAZINE INJ 12.5 MG in SODIUM CHLORIDE 0.9% 50 ML 2.5 MG IV (10:26)
[2025-05-24] MEDS: HYDROmorphone INJ 2 MG/ML VIAL 0.4 MG IVP (11:03)
[2025-05-24] MEDS: fentaNYL CIT INJ 50 mCg/ML AMP 2ML 25 MCG IVP ×2 (11:56→12:38)
--- NOTE | 2025-05-24 12:00 | SUR.PHASEII ---
1200:: Report given to Judith SORIANO to resume care of pt. Pt. AAO4, vitals stable, breathing unlabored, dressing to left knee CDI, no active bleed noted, family at bedside.
[2025-05-24] MEDS: ACETAMINOPHEN IVPB 1,000 MG/100 ML VIAL 250 MG IV (12:01)
--- NOTE | 2025-05-24 12:05 | SUR.PHASEII ---
Received report on pt. s/p surgery from Sarah SORIANO. Pt. is resting with eyes closed, responds to verbal commands, VSS, pt.'s family at bedside, dressing to left knee CDI.
--- NOTE | 2025-05-24 12:34 | SUR.PHASEII ---
1234: Report received from Judith SORIANO. No new changes to pt.
--- NOTE | 2025-05-24 13:40 | SUR.PHASEII ---
1340: Pt. AAOx4, vitals stable, breathing unlabored, no complaint of pain or nausea, dressing to left knee CDI, no active bleed noted, bilateral dorsalis pedis pulses present, cap refill to bilateral feet less than 3 seconds, pt. tolerated ambulating with physical therapy well, pt. able to void, pt. tolerated sips of water well, gave discharge instructions to the pt. and her ride using land reclamation specialist, both verbalized understanding and had no further questions. Pt. left with all personal belongings.
== END 2025-05-24 13:40 | disposition home or self-care (01) ==
PROVIDERS: Anesthesiology; PCP Physician Assistant; Referring Provider Orthopaedic Surgery Adult Reconstructive Orthopaedic Surgery; Visit Provider Orthopaedic Surgery Adult Reconstructive Orthopaedic Surgery
PROC: (CPT 27447; principal; 2025-05-24 07:30)
DX: M17.12 Unilateral primary osteoarthritis, left knee (principal); Z01.810 Encounter for preprocedural cardiovascular examination; M25.762 Osteophyte, left knee
CPT/HCPCS: 27447; 20985; 36415; 73562; 80053; 85025; 85610; 85730; 93005; 97162; A4217; C1713; C1776; J0131; J0690; J1100; J1171; J1885; J2250; J2405; J2550; J2704; J2765; J2795; J3010; J3490; J7999; A4648; A4649; A9270

== ENCOUNTER 2025-06-08 08:56 | Outpatient (AMB) | payer MEDICAID, SELFPAY ==
[2025-06-08 09:08] VITALS: BP 144/81; PULSE 85; RESP 18; TEMP 36.7; O2SAT 97; BMI 36.4
--- NOTE | 2025-06-08 09:08 | PD.ORTHCLVIS ---
Vital signs 06/08/25 09:08 Height 1.55 m Height Method Measured Weight 87.6 kg Weight Measurement Method Standing Scale BMI 36.4 BP 144/81 H Blood Pressure Source Automatic Cuff Blood Pressure Location Left Upper Arm Position Sitting Respiration 18 Pulse 85 Pulse Source Monitor Temp 98.1 F Temp Source Temporal Artery Scan Pulse Oximetry (%) 97 Oxygen Delivery Method Room Air Med/Allergies Allergies & Medications Allergies No Known Allergies Allergy (Verified 06/08/25 09:10) Medication Reconciliation hydroxyzine HCl 25 mg tablet 25 mg PO HS 05/20/25 [History Confirmed 06/08/25] lisinopril 20 mg tablet 20 mg PO DAILY 05/20/25 [History Confirmed 06/08/25] methocarbamol 500 mg tablet 500 mg PO BID 05/20/25 [History Confirmed 06/08/25] acetaminophen 500 mg tablet (Acetaminophen Extra Strength) 1,000 mg (2 x 500 mg) PO Q6H PRN pain #90 tabs 05/24/25 [Rx Confirmed 06/08/25] aspirin 81 mg tablet,delayed release 81 mg PO BID #60 tabs 05/24/25 [Rx Confirmed 06/08/25] doxycycline hyclate 100 mg tablet 100 mg PO BID #14 tabs 05/24/25 [Rx Confirmed 06/08/25] sennosides 8.6 mg-docusate sodium 50 mg tablet (Senna-S) 1 tab-cap PO QDAY #30 tabs 05/24/25 [Rx Confirmed 06/08/25] gabapentin 300 mg capsule 300 mg PO .qhs #30 caps 06/08/25 [Rx] oxycodone 5 mg tablet 5 mg PO Q6H PRN pain #28 tabs 06/08/25 [Rx] Exam Exam Patient is in no acute distress and is cooperative with the examination today. Patient has a normal mood and affect. Breathing is nonlabored. In no respiratory distress. Bilateral extremities were evaluated and demonstrates sensation intact to light touch. Palpable pedal pulses are present. No significant edema is present. Left knee incision is clean dry and intact Assessment and Plan Problem List (1) History of total left knee replacement: Status: Acute Plan: Patient is a pleasant 59-year-old female status post left total knee replacement. She is doing well. Will start her outpatient physical therapy. Will see her in 4 weeks. We sent her a refill on medication. She should start physical therapy Office Procedures GNS Level of Care Nursing/Assessment Patient Status: Established Patient Nursing Assessment/Reassesment: Medication Reconciliation, Update PMH in EMR and Vital Signs Coordination of Care: Complex Care and Chronic Disease 1-5, Education Complex Pt/Fam, Consent,records obtained, informed consent, Results/Orders obtained and Staff clarify orders Special Needs: Language special needs Established Patient Charge Established Patient Point Assignment: 95 Established Patient Point Charge: EP Level 3 (80-115) MA Intake Visit Data Collection New Patient or Established: Established Patient (seen at [facility] within 3 years) Reason for Visit:: 2 WEEK POST OP LEFT TKA Seen by Clinical Staff ONLY (RN/MA): No Verbal consent obtained for Telemed visit?: No Treasury Management Sales Consultant Required: Yes PCP or OBGYN visit in last 3 months: Yes Hx Now: No Do You Feel Safe at Home: Yes Authorities Contacted: N/A Questionairres Past Medical History Past Medical History Have you ever been diagnosed with any of the following: Neurological Problems Seizures: No Cardiology Problems Congestive Heart Failure: No Edema: No Cellulitis: No Hypertension: Yes Varicose Veins: No Respiratory Problems Chronic Obstructive Pulmonary Disease (COPD): No Tuberculosis: No Sleep Apnea: No Stomache/Intestinal Problems Hepatitis: No Genital/Urinary Problems Renal Disease: No Reproductive Problems Previous Pregnancies: Yes (7) Musculoskeletal Problems Arthritis: Yes Degenerative Disk Disease: Yes Endocrine Problems Diabetes Mellitus Type 1: No Diabetes Mellitus Type 2: No Psychologic Problems Depression: Yes Anxiety: Yes Other Problems Hospitalization: No Shingles: No Falls: No Blood Transfusions: No Blood Transfusion Reaction: No Anesthesia Reactions: No Chemotherapy: No Radiation Therapy: No MRSA: No Chicken Pox: Yes Measles: No Mumps: No Cancer: No Surgical History Pacemaker: No Subjective Visit Visit for: follow up visit, post op #1 and knee Immunization / Flu Flu Vaccine in the Last 12 Months: No Flu Vaccine Exclusion Criteria: No Exclusion Criteria History of Present Illness Chief complaint: 2 WEEK POST OP LEFT TKA Pleasant 59-year-old female with worsening left knee pain over the past year. The patient is 2 weeks postop status post left total knee replacement. SHe is doing well Personal History Occupation: UNEMPLOYED Red flag PMH: BMI BMI Counceling provided: Yes Pain Pain level (0-10): 10 Pain duration: ALL DAY Pain location: inside (medial), outside (lateral), anterior and posterior Pain quality: sharp, dull and aching Pain timing: night, increases with activity and stairs Associated signs & symptoms: numbness, weakness and stiffness Ambulatory data Ambulatory device: cane Treatments Number of previous injections: 2 Improvement with previous injections: No Improvement with PT: No Improvement with NSAIDS: no Review of Systems Review of Systems: All systems negative unless otherwise noted in HPI.
== END 2025-06-08 09:34 | disposition home or self-care (01) ==
LOC: HODSRG 08:56
PROVIDERS: PCP Physician Assistant; Referring Provider Physician Assistant; Supervising Provider Orthopaedic Surgery Adult Reconstructive Orthopaedic Surgery; Visit Provider Orthopaedic Surgery Adult Reconstructive Orthopaedic Surgery
DX: Z96.652 Presence of left artificial knee joint (principal); I10 Essential (primary) hypertension
CPT/HCPCS: 99213; G0463

== ENCOUNTER 2025-06-25 13:00 | Outpatient (RCR) | payer MEDICAID, SELFPAY ==
--- NOTE | 2025-06-16 11:30 | PTNOTE_ITS ---
PT OP Initial Eval Patient Information Outpatient Physical Therapy Treatment Date: 06/16/25 Medical Diagnosis: z96.652 Treatment Dx #1: Left Knee Mobility Deficits Treatment Dx #2: Left Knee Pain Start of Care: 06/16/25 Date of Onset: 05/24/25 Smoking Status Smoking Status: Never smoker Initial Assessment Subjective: Pt is a 59 y/o female s/p left TKA 05/24/25 due to knee OA. Pt still has pain 6/10 with activities. Pt has limitation with standing, walking, chores, self care, cooking, cleaning, stairs, and performing recreational activities. Pt received ~ 6 sessions of homehealth PT. Objective: Left Knee AROM: -12 deg to 76 deg Left Knee PROM: -10 deg to 90 deg Left Knee MMTs: grossly 3/5 Left Hip MMTs: grossly 3-/5 SLS: unable Gait Observation: antalgic gait with FWW Assessment: Pt demonstrate left knee mobility and strength deficits s/p left TKA leading to difficulty with ADLs. Pt will benefit from physical therapy to increase ROM, strength, and work on ambulation. Short Term and Ladle Puller Goals 1) Decrease knee extension to -8 deg in 12 wks to have a better gait plumbing and heating mechanic 2) Increase left knee flexion to 115 deg in 12 wks to be able to perform squatting activities 3) Decrease knee pain to 2/10 in 12 wks to be able to stand more than 30 mins 4) Increase left knee MMTs grossly to 4/5 in 12 wks to be able to perform stairs and steps 5) Increase left hip MMTs grossly 4-/5 in 12 wks to be able to walk more than 30 mins 6) Increase SLS to 15 sec in 12 wks to be able to perform self care activities 7) Indep with HEP Treatment Plan 1) Manual Therapy 2) Therapeutic Activities 3) Therapeutic Exercises 4) Modalities (ice, heat) 5) Balance Training 6) Gait Training Frequency and Duration: 2 x wk for 12 wks Certification Dates: 06/16/25 to 09/16/25 Procedure Charges OP PT Eval Mod Complex 30 minutes: Yes
--- NOTE | 2025-06-18 14:00 | PT.ODAYNRPT ---
PT Outpatient Daily Note OP Daily Note Outpatient Physical Therapy Treatment Date: 06/18/25 Visit Reasons: post op MANGO left Subjective: Pt's knee continues to hurt not much has changed since the evaluation. Objective: Left Knee PROM: 90 deg Assessment: Pt is progressing with PROM with less pain reported. Post ice helped with pain and soreness Plan: Continue with PT Length of Time (minutes) of Treatment: 30 Minutes Procedure Charges Therapeutic Exercise 30 minutes: Yes
--- NOTE | 2025-06-21 13:52 | PT.ODAYNRPT ---
PT Outpatient Daily Note OP Daily Note Outpatient Physical Therapy Treatment Date: 06/21/25 Visit Reasons: post op MANGO left Subjective: Pt continues to have pain in the knee. Pt was really sore after last session, however, likes the ice after therapy session Objective: Please see flow chart for list of ther ex performed Assessment: frequent cues today with PROM in order to increase knee flexion PROM. Added more standing exercises today with good tolerance Plan: Continue with PT Length of Time (minutes) of Treatment: 30 Minutes Procedure Charges Therapeutic Exercise 30 minutes: Yes
--- NOTE | 2025-06-25 13:31 | PT.ODAYNRPT ---
PT Outpatient Daily Note OP Daily Note Outpatient Physical Therapy Treatment Date: 06/25/25 Visit Reasons: post op MANGO left Subjective: Pt's knee is a little better. According to daughter Pt is walking around the house with less limitation. Pt also require less assistance from family members with self care activities Objective: Please see flow chart for list of ther ex performed Assessment: Pt continues to progress with knee AROM with less pain reported. Pt demonstrate more WB on the left LE in stance with increase stride with gait Plan: Continue with PT Length of Time (minutes) of Treatment: 30 Minutes Procedure Charges Therapeutic Exercise 30 minutes: Yes
== END 2025-06-27 23:59 | disposition home or self-care (01) ==
LOC: CPTX 13:00
PROVIDERS: PCP Orthopaedic Surgery Adult Reconstructive Orthopaedic Surgery; Referring Provider Orthopaedic Surgery Adult Reconstructive Orthopaedic Surgery; Visit Provider Orthopaedic Surgery Adult Reconstructive Orthopaedic Surgery
DX: M25.562 Pain in left knee (principal); R26.2 Difficulty in walking, not elsewhere classified; Z96.652 Presence of left artificial knee joint
CPT/HCPCS: 97110; 97162

== ENCOUNTER 2025-07-06 08:32 | Outpatient (AMB) | payer MEDICAID, SELFPAY ==
[2025-07-06 08:51] VITALS: BP 103/67; PULSE 72; RESP 19; TEMP 36.4; O2SAT 98; BMI 35.0
--- NOTE | 2025-07-06 08:51 | ORTHONT_ITS ---
Vital signs 07/06/25 08:51 Height 1.57 m Height Method Stated Weight 86.863 kg Weight Measurement Method Standing Scale BMI 35.0 BP 103/67 Blood Pressure Source Automatic Cuff Blood Pressure Location Left Upper Arm Position Sitting Respiration 19 Pulse 72 Pulse Source Monitor Temp 97.6 F Temp Source Temporal Artery Scan Pulse Oximetry (%) 98 Oxygen Delivery Method Room Air Med/Allergies Allergies & Medications Allergies No Known Allergies Allergy (Verified 07/06/25 08:52) Medication Reconciliation hydroxyzine HCl 25 mg tablet 25 mg PO HS 05/20/25 [History Confirmed 07/06/25] lisinopril 20 mg tablet 20 mg PO DAILY 05/20/25 [History Confirmed 07/06/25] methocarbamol 500 mg tablet 500 mg PO BID 05/20/25 [History Confirmed 07/06/25] acetaminophen 500 mg tablet (Acetaminophen Extra Strength) 1,000 mg (2 x 500 mg) PO Q6H PRN pain #90 tabs 05/24/25 [Rx Confirmed 07/06/25] aspirin 81 mg tablet,delayed release 81 mg PO BID #60 tabs 05/24/25 [Rx Confirmed 07/06/25] doxycycline hyclate 100 mg tablet 100 mg PO BID #14 tabs 05/24/25 [Rx Confirmed 07/06/25] sennosides 8.6 mg-docusate sodium 50 mg tablet (Senna-S) 1 tab-cap PO QDAY #30 tabs 05/24/25 [Rx Confirmed 07/06/25] gabapentin 300 mg capsule 300 mg PO .qhs #30 caps 06/08/25 [Rx Confirmed 07/06/25] oxycodone 5 mg tablet 5 mg PO Q6H PRN pain #28 tabs 06/08/25 [Rx Confirmed 07/06/25] Exam Exam Patient is in no acute distress and is cooperative with the examination today. Patient has a normal mood and affect. Breathing is nonlabored. In no respiratory distress. Bilateral extremities were evaluated and demonstrates sensation intact to light touch. Palpable pedal pulses are present. No significant edema is present. Left knee incision is clean dry and intact. ROM is 0-90 degrees Assessment and Plan Problem List (1) History of total left knee replacement: Status: Acute Plan: Patient is a pleasant 59-year-old female status post left total knee replacement. She is doing well. Will see her in 4 weeks. We want her to continue working with PT. We discussedf the possibility of needing a manip if the motion does not improve. She understands importance of working aggressively with physical therapy. We will see her back for motion check Office Procedures GNS Level of Care Nursing/Assessment Patient Status: Established Patient Nursing Assessment/Reassesment: Medication Reconciliation, Update PMH in EMR and Vital Signs Coordination of Care: Complex Care and Chronic Disease 1-5, Education Complex Pt/Fam, Consent,records obtained, informed consent, Results/Orders obtained and Staff clarify orders Special Needs: Language special needs Established Patient Charge Established Patient Point Assignment: 95 Established Patient Point Charge: EP Level 3 (80-115) MA Intake Visit Data Collection New Patient or Established: Established Patient (seen at [facility] within 3 years) Reason for Visit:: 6 WEEK POST OP LEFT TKA Seen by Clinical Staff ONLY (RN/MA): No Verbal consent obtained for Telemed visit?: No Air Quality Consultant Required: Yes PCP or OBGYN visit in last 3 months: Yes Hx Now: No Do You Feel Safe at Home: Yes Authorities Contacted: N/A Questionairres Past Medical History Past Medical History Have you ever been diagnosed with any of the following: Neurological Problems Seizures: No Cardiology Problems Congestive Heart Failure: No Edema: No Cellulitis: No Hypertension: Yes Varicose Veins: No Respiratory Problems Chronic Obstructive Pulmonary Disease (COPD): No Tuberculosis: No Sleep Apnea: No Stomache/Intestinal Problems Hepatitis: No Genital/Urinary Problems Renal Disease: No Reproductive Problems Previous Pregnancies: Yes (7) Musculoskeletal Problems Arthritis: Yes Degenerative Disk Disease: Yes Endocrine Problems Diabetes Mellitus Type 1: No Diabetes Mellitus Type 2: No Psychologic Problems Depression: Yes Anxiety: Yes Other Problems Hospitalization: No Shingles: No Falls: No Blood Transfusions: No Blood Transfusion Reaction: No Anesthesia Reactions: No Chemotherapy: No Radiation Therapy: No MRSA: No Chicken Pox: Yes Measles: No Mumps: No Cancer: No Surgical History Pacemaker: No Subjective Visit Visit for: follow up visit, post op #2 and knee Immunization / Flu Flu Vaccine in the Last 12 Months: No Flu Vaccine Exclusion Criteria: No Exclusion Criteria History of Present Illness Chief complaint: 6 WEEK POST OP LEFT TKA Pleasant 59-year-old female with worsening left knee pain over the past year. The patient is 6 weeks postop status post left total knee replacement. SHe is doing well Personal History Occupation: UNEMPLOYED Red flag PMH: BMI BMI Counceling provided: Yes Pain Pain level (0-10): 10 Pain duration: ALL DAY Pain location: inside (medial), outside (lateral), anterior and posterior Pain quality: sharp, dull and aching Pain timing: night, increases with activity and stairs Associated signs & symptoms: numbness, weakness and stiffness Ambulatory data Ambulatory device: cane Treatments Number of previous injections: 2 Improvement with previous injections: No Improvement with PT: No Improvement with NSAIDS: no Review of Systems Review of Systems: All systems negative unless otherwise noted in HPI.
--- NOTE | 2025-07-06 09:04 | XR_ITS ---
Examination: Bilateral AP knees single view Left knee PA lateral axial 3 views TECHNIQUE: EXAMINATION: AP bilateral knees standing single view Left knee PA standing flexion, standing lateral, axial left knee 3 views total 4 views Date and time: July 06, 2025, 0916 hours INDICATIONS: Left knee replacement beginning April 2025 FINDINGS: Prominent osteopenia Moderate narrowing medial joint space right knee Total left knee arthroplasty. Satisfactory alignment. No loosening of the prosthetic components. No patellar dislocation IMPRESSION: Total left knee arthroplasty with satisfactory alignment
== END 2025-07-06 09:05 | disposition home or self-care (01) ==
LOC: HODSRG 08:32
PROVIDERS: PCP Physician Assistant; Referring Provider Physician Assistant; Supervising Provider Orthopaedic Surgery Adult Reconstructive Orthopaedic Surgery; Visit Provider Orthopaedic Surgery Adult Reconstructive Orthopaedic Surgery
DX: Z96.652 Presence of left artificial knee joint (principal); M25.562 Pain in left knee; I10 Essential (primary) hypertension
CPT/HCPCS: 73564; 99213; G0463

== ENCOUNTER 2025-07-23 14:30 | Outpatient (RCR) | payer MEDICAID, SELFPAY ==
--- NOTE | 2025-06-30 15:11 | PT.ODAYNRPT ---
PT Outpatient Daily Note OP Daily Note Outpatient Physical Therapy Treatment Date: 06/30/25 Visit Reasons: post op MANGO left Subjective: Pt reports L knee is swollen and sore. Objective: Please see flow sheet for ther ex list. Assessment: Pt is highly guarded during PROM and AAROM interventions into knee flexion. Pt and pt daughter educated on the importance of performing HEP to maximize rehab potential. Plan: Continue with pOC. Length of Time (minutes) of Treatment: 30 Minutes Procedure Charges Therapeutic Exercise 30 minutes: Yes
--- NOTE | 2025-07-02 15:17 | PT.ODAYNRPT ---
PT Outpatient Daily Note OP Daily Note Outpatient Physical Therapy Treatment Date: 07/02/25 Visit Reasons: post op MANGO left Subjective: Pt's knee hurts all the time. Pt is able to walk longer now. According to daughter patient has been able to get out of the car with less assist. Objective: Please see flow chart for list of ther ex performed Assessment: Progressing with closed chain exercises. Pt had difficulty tolerating passive knee flexion stretching due to pain Plan: Continue with PT Length of Time (minutes) of Treatment: 30 Minutes Procedure Charges Therapeutic Exercise 30 minutes: Yes
--- NOTE | 2025-07-06 15:51 | PT.ODAYNRPT ---
PT Outpatient Daily Note OP Daily Note Outpatient Physical Therapy Treatment Date: 07/06/25 Visit Reasons: post op MANGO left Subjective: Pt reports her knee is doing a little better but still has pain with walking. A per pt her family notices that she is walking better and faster now. Objective: Please see flow sheet for ther ex list. Assessment: Pt demonstrates improved knee flexion during swing phase indicating progress. Worked on GT in parallel bars with single SEMICONDUCTOR EQUIPMENT TECHNICIAN to simulate ambulating with cane. Plan: Continue with pOC. Length of Time (minutes) of Treatment: 30 Minutes Procedure Charges Therapeutic Exercise 30 minutes: Yes
--- NOTE | 2025-07-08 15:12 | PT.ODAYNRPT ---
PT Outpatient Daily Note OP Daily Note Outpatient Physical Therapy Treatment Date: 07/08/25 Visit Reasons: post op MANGO left Subjective: Pt reports experiencing Lt knee soreness and explains during her follow up with her Surgeon, he requested to continue working on improving knee flexion ROM. Objective: See F/S for therex Assessment: Demo'd improved strength and single leg WBing through L LE during exercises. Post GT w/ SPC, pt was advised she can transition from FWW to SPC. Improved tolerance to passive knee flexion stretch. Plan: Continue with POC Length of Time (minutes) of Treatment: 30 Minutes Procedure Charges Therapeutic Exercise 30 minutes: Yes
--- NOTE | 2025-07-12 14:36 | PTNOTE_ITS ---
PT Outpatient Daily Note OP Daily Note Outpatient Physical Therapy Treatment Date: 07/12/25 Visit Reasons: post op MANGO left Subjective: Pt's knee still stiff but walking further with less pain now. Pt has been able to go to the store using her walker Objective: Please see flow chart for list of ther ex performed Assessment: improve quad control with step and lateral step up exercises with less cues to correct automobile mechanic motor Plan: Continue with PT Length of Time (minutes) of Treatment: 30 Minutes Procedure Charges Therapeutic Exercise 30 minutes: Yes
--- NOTE | 2025-07-15 15:12 | PT.ODAYNRPT ---
PT Outpatient Daily Note OP Daily Note Outpatient Physical Therapy Treatment Date: 07/15/25 Visit Reasons: post op MANGO left Subjective: No new complaints or concerns. Objective: Please see flow sheet for ther ex list. Assessment: Focus on restoring ROM and strength. Worked on GT with SPC, pt demonstrates good gait pattern and no LOB. Plan: Continue with poC. Length of Time (minutes) of Treatment: 30 Minutes Procedure Charges Therapeutic Exercise 30 minutes: Yes
--- NOTE | 2025-07-23 14:49 | PT.ODS1RPT ---
PT OP Progress/Discharge Note Date of Service: 07/23/25 Progress Note/DC Note Progress Note/Discharge Note: Progress Note Patient Information Visit Reasons: post op MANGO left Medical Diagnosis: z96.652 Treatment Dx #1: Left Knee Mobility Deficits Treatment Dx #2: Left Knee Pain Service Continue Service or Discharge: Continue Service Certification Date Certification Dates: 07/23/25 to 10/22/25 Status Subjective: Pt's knee feels much better. Pt has been using the cane with walking. Pt started light ADLs with less limitation. Pt still has difficulty with prolonged walking, standing, balance, stairs, and squatting motions. Objective: Left Knee AROM: -8 deg to 105 deg Left Knee MMTs: grossly 3+/5 Left Hip: grossly 3+/5 SLS: 3 sec Assessment: Pt demonstrate improvement with left knee mobility and strength allowing her to resume ADLs, ambulate, and chores with less limitation. Pt has not met set goals and will continue to benefit from physical therapy to increase ROM, strength, and work on knee flexibility; thank you for your referrals. Plan: Continue with PT/POC and add 8 sessions (2 x wk for 4 wks) Procedure Charges Therapeutic Exercise 30 minutes: Yes
== END 2025-07-27 23:59 | disposition home or self-care (01) ==
LOC: CPTX 14:30
PROVIDERS: PCP Orthopaedic Surgery Adult Reconstructive Orthopaedic Surgery; Referring Provider Orthopaedic Surgery Adult Reconstructive Orthopaedic Surgery; Visit Provider Orthopaedic Surgery Adult Reconstructive Orthopaedic Surgery
DX: M25.562 Pain in left knee (principal); R26.2 Difficulty in walking, not elsewhere classified; Z96.652 Presence of left artificial knee joint
CPT/HCPCS: 97110

== ENCOUNTER 2025-08-20 08:18 | Outpatient (AMB) | payer MEDICAID, SELFPAY ==
--- NOTE | 2025-08-20 08:19 | PD.ORTHCLVIS ---
Vital signs 08/20/25 08:26 Height 1.57 m Height Method Stated Weight 85.984 kg Weight Measurement Method Standing Scale BMI 34.9 BP 117/53 L Blood Pressure Source Automatic Cuff Blood Pressure Location Left Upper Arm Position Sitting Respiration 19 Pulse 68 Pulse Source Monitor Temp 97.4 F Temp Source Temporal Artery Scan Pulse Oximetry (%) 98 Oxygen Delivery Method Room Air Med/Allergies Allergies & Medications Allergies No Known Allergies Allergy (Verified 08/20/25 08:27) Medication Reconciliation hydroxyzine HCl 25 mg tablet 25 mg PO HS 05/20/25 [History Confirmed 08/20/25] lisinopril 20 mg tablet 20 mg PO DAILY 05/20/25 [History Confirmed 08/20/25] methocarbamol 500 mg tablet 500 mg PO BID 05/20/25 [History Confirmed 08/20/25] acetaminophen 500 mg tablet (Acetaminophen Extra Strength) 1,000 mg (2 x 500 mg) PO Q6H PRN pain #90 tabs 05/24/25 [Rx Confirmed 08/20/25] aspirin 81 mg tablet,delayed release 81 mg PO BID #60 tabs 05/24/25 [Rx Confirmed 08/20/25] doxycycline hyclate 100 mg tablet 100 mg PO BID #14 tabs 05/24/25 [Rx Confirmed 08/20/25] gabapentin 300 mg capsule 300 mg PO .qhs #30 caps 06/08/25 [Rx Confirmed 08/20/25] oxycodone 5 mg tablet 5 mg PO Q6H PRN pain #28 tabs 06/08/25 [Rx Confirmed 08/20/25] Exam Exam Patient is in no acute distress and is cooperative with the examination today. Patient has a normal mood and affect. Breathing is nonlabored. In no respiratory distress. Bilateral extremities were evaluated and demonstrates sensation intact to light touch. Palpable pedal pulses are present. No significant edema is present. Left knee incision is clean dry and intact. ROM is 0-105 degrees X-rays from July 06 demonstrates a cementless total knee replacement in good alignment and position Assessment and Plan Problem List (1) History of total left knee replacement: Status: Acute Plan: Patient is a pleasant 59-year-old female status post left total knee replacement. She is doing well. Her range of motion is great and she is very happy. Will see her approximately 6 months for routine followup Plan She has completed physical therapy and we recommend continued home exercises. Patient is doing well Office Procedures GNS Level of Care Nursing/Assessment Patient Status: Established Patient Nursing Assessment/Reassesment: Medication Reconciliation, Update PMH in EMR and Vital Signs Coordination of Care: Complex Care and Chronic Disease 1-5, Education Complex Pt/Fam, Consent,records obtained, informed consent, Results/Orders obtained and Staff clarify orders Special Needs: Language special needs Established Patient Charge Established Patient Point Assignment: 95 Established Patient Point Charge: EP Level 3 (80-115) MA Intake Visit Data Collection New Patient or Established: Established Patient (seen at [facility] within 3 years) Reason for Visit:: L TKA/XRAY RESULTS Seen by Clinical Staff ONLY (RN/MA): No Verbal consent obtained for Telemed visit?: No Customs Compliance Manager Required: Yes PCP or OBGYN visit in last 3 months: Yes Hx Now: No Do You Feel Safe at Home: Yes Authorities Contacted: N/A Questionairres Past Medical History Past Medical History Have you ever been diagnosed with any of the following: Neurological Problems Cerebrovascular Accident (CVA): No Transient Ischemic Attacks (TIA): No Dementia: No Alzheimer's Disease: No Parkinson's Disease: No Brain Tumor: No Meningitis: No Seizures: No Epilepsy: No Multiple Sclerosis: No Cerebral Palsy: No Amyotrophic Lateral Sclerosis (ALS/Leann Gehrig's): No Guillain-[place] Syndrome: No Spina Bifida: No Paralysis: No Peripheral Neuropathy: No Polanco's Palsy: No Subdural Hematoma: No Migraine: No Head Trauma: No Spinal Cord Injury: No Traumatic Brain Injury: No Cardiology Problems Congestive Heart Failure: No Edema: No Cellulitis: No Hypertension: Yes Varicose Veins: No Respiratory Problems Chronic Obstructive Pulmonary Disease (COPD): No Tuberculosis: No Sleep Apnea: No Stomache/Intestinal Problems Hepatitis: No Genital/Urinary Problems Renal Disease: No Reproductive Problems Previous Pregnancies: Yes (7) Musculoskeletal Problems Arthritis: Yes Degenerative Disk Disease: Yes Endocrine Problems Diabetes Mellitus Type 1: No Diabetes Mellitus Type 2: No Psychologic Problems Depression: Yes Anxiety: Yes Other Problems Hospitalization: No Shingles: No Falls: No Blood Transfusions: No Blood Transfusion Reaction: No Anesthesia Reactions: No Chemotherapy: No Radiation Therapy: No MRSA: No Chicken Pox: Yes Measles: No Mumps: No Cancer: No Surgical History Pacemaker: No Subjective Visit Visit for: follow up visit and knee Immunization / Flu Flu Vaccine in the Last 12 Months: No Flu Vaccine Exclusion Criteria: No Exclusion Criteria History of Present Illness Chief complaint: 6 WEEK POST OP LEFT TKA Pleasant 59-year-old female with left knee pain and osteoarthritis.. The patient is 12 weeks postop status post left total knee replacement. SHe is doing well. She reports almost no pain at all Personal History Occupation: UNEMPLOYED Red flag PMH: BMI BMI Counceling provided: Yes Pain Pain level (0-10): 10 Pain duration: ALL DAY Pain location: inside (medial), outside (lateral), anterior and posterior Pain quality: sharp, dull and aching Pain timing: night, increases with activity and stairs Associated signs & symptoms: numbness, weakness and stiffness Ambulatory data Ambulatory device: cane Treatments Number of previous injections: 2 Improvement with previous injections: No Improvement with PT: No Improvement with NSAIDS: no Review of Systems Review of Systems: All systems negative unless otherwise noted in HPI.
[2025-08-20 08:26] VITALS: BP 117/53; PULSE 68; RESP 19; TEMP 36.3; O2SAT 98; BMI 34.9
== END 2025-08-20 08:33 | disposition home or self-care (01) ==
LOC: HODSRG 08:18
PROVIDERS: PCP Physician Assistant; Referring Provider Physician Assistant; Supervising Provider Orthopaedic Surgery Adult Reconstructive Orthopaedic Surgery; Visit Provider Orthopaedic Surgery Adult Reconstructive Orthopaedic Surgery
DX: Z47.1 Aftercare following joint replacement surgery (principal); Z96.652 Presence of left artificial knee joint; M25.562 Pain in left knee; I10 Essential (primary) hypertension
CPT/HCPCS: 99213; G0463

== ENCOUNTER 2025-08-27 15:00 | Outpatient (RCR) | payer MEDICAID, SELFPAY ==
--- NOTE | 2025-08-17 09:28 | PT.ODAYNRPT ---
PT Outpatient Daily Note OP Daily Note Outpatient Physical Therapy Treatment Date: 08/17/25 Visit Reasons: Post op MANGO left Subjective: Pt's knee is much better and walking with confidence using her cane. Objective: Please see flow chart for list of ther ex performed Assessment: improving with step up exercises with more WB through the knee when coming up the step with less assist from her hand Plan: Continue with PT Length of Time (minutes) of Treatment: 30 Minutes Procedure Charges Therapeutic Exercise 30 minutes: Yes
--- NOTE | 2025-08-20 15:24 | PT.ODAYNRPT ---
PT Outpatient Daily Note OP Daily Note Outpatient Physical Therapy Treatment Date: 08/20/25 Visit Reasons: Post op MANGO left Subjective: Pt's knee is much better and has been able to walk less with her cane around the house or outside of the house. Objective: Please see flow chart for list of ther ex performed Assessment: advance patient to 6 step with good form and able to WB getting up the step Plan: Continue with PT Length of Time (minutes) of Treatment: 30 Minutes Procedure Charges Therapeutic Exercise 30 minutes: Yes
--- NOTE | 2025-08-25 15:31 | PT.ODAYNRPT ---
PT Outpatient Daily Note OP Daily Note Outpatient Physical Therapy Treatment Date: 08/25/25 Visit Reasons: Post op MANGO left Subjective: Pt reports knee is progressing, walks short distance and in home with no AD. Objective: Please see flow sheet for ther ex list. Assessment: Pt demonstrates improved gait, using SPC in clinic. Plan: Continue with poC. Length of Time (minutes) of Treatment: 30 Minutes Procedure Charges Therapeutic Exercise 30 minutes: Yes
--- NOTE | 2025-08-27 15:34 | PT.ODAYNRPT ---
PT Outpatient Daily Note OP Daily Note Outpatient Physical Therapy Treatment Date: 08/27/25 Pediatric or Adult Patient: Adult PT >13 Visit Reasons: Post op MANGO left Subjective: pt continues to report progress. Objective: Please see flow sheet for ther ex list. Assessment: Verbal cues to avoid excessive anterior tibial translation during squats, pt complied. Plan: Continue with poC. Length of Time (minutes) of Treatment: 30 Minutes Procedure Charges Therapeutic Exercise 30 minutes: Yes
== END 2025-08-27 23:59 | disposition home or self-care (01) ==
LOC: CPTX 15:00
PROVIDERS: PCP Orthopaedic Surgery Adult Reconstructive Orthopaedic Surgery; Referring Provider Orthopaedic Surgery Adult Reconstructive Orthopaedic Surgery; Visit Provider Orthopaedic Surgery Adult Reconstructive Orthopaedic Surgery
DX: M25.562 Pain in left knee (principal); R26.2 Difficulty in walking, not elsewhere classified; Z96.652 Presence of left artificial knee joint
CPT/HCPCS: 97110